=== PATIENT | female | born 2000 | race Caucasian/White ===

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

== ENCOUNTER 2021-02-03 12:47 | Outpatient (CLI) | payer BC, SELFPAY ==
--- NOTE | ~2021-02-03 | US_ITS ---
EXAMINATION: US OB <= 14 weeks fetus DATE: 02/03/2021 13:15 INDICATION: Encounter for supervision of normal . TECHNIQUE: Real-time transabdominal pelvic ultrasound was performed. COMPARISON: None. FINDINGS: The uterus measures 9.4 x 8.6 x 10.0 cm. There is an intrauterine gestational sac. The crown ru mp length measures 7.0. The biparietal diameter measures 2.5 cm. The femur length measures 1.1 cm. Th heriberto measurements correlate with an estimated gestational age of 13 weeks and 4 day(s) (+/-) 1 week(s) and 0 day(s). heart motion is identified measuring 153 beats per minute (bpm) by M-mode Dopple r. The ovaries are not visualized. There is no free fluid in the pelvis. IMPRESSION: 1. Single living intrauterine gestation with estimated date of delivery of 08/07/2021. Reviewed, dictated and finalized at location A. IMPRESSION: 1. Single living intrauterine gestation with estimated date of delivery of 07/14.
== END 2021-02-03 12:48 ==
LOC: MICIMG 12:49
PROVIDERS: PCP Physician Assistant; Visit Provider Physician Assistant
DX: Z34.91 Encounter for supervision of normal pregnancy, unspecified, first trimester (principal); Z3A.13 13 weeks gestation of pregnancy
CPT/HCPCS: 76801

== ENCOUNTER 2021-05-10 10:24 | Observation (INO) | payer BC, SELFPAY ==
--- NOTE | 2021-05-10 10:30 | OBADM ---
This patient, Дмитрий Torres, admitted to the OB room Labor/Delivery/Recovery 119 for observation. Patient/family oriented to hospital policies and general routines including ID bracelet, bed and alarms, visiting hours, pain management, procedures, bathroom and other care routines, personal items, smoking policy, room service/diet, and visiting hours. Patient/Family are encouraged to report perceived risks to care and to ask questions if they do not understand what they are told or what they should do.
[2021-05-10 10:45] VITALS: BP 104/56; PULSE 70
[2021-05-10 11:00] VITALS: BP 103/53; PULSE 77
[2021-05-10 11:18] VITALS: BMI 20.6
--- NOTE | 2021-05-11 16:25 | PM.OBTRLD ---
OB - Triage/Final Diagnosis Visit Information Reason for evaluation: threatened labor Comments/Additional reasons for admission: I have assessed the risk for this patient, Дмитрий Torres, and determined that she would benefit from observation care.
== END 2021-05-10 11:15 | disposition home or self-care (01) ==
LOC: ANHLDR 10:44
PROVIDERS: Admitting Provider Obstetrics & Gynecology; PCP Physician Assistant; Visit Provider Obstetrics & Gynecology
DX: O47.03 False labor before 37 completed weeks of gestation, third trimester (principal); Z3A.27 27 weeks gestation of pregnancy
CPT/HCPCS: G0378; G0379

== ENCOUNTER 2021-07-12 12:31 | Inpatient (IN) | payer BC, SELFPAY ==
--- NOTE | ~2021-07-12 | US_ITS ---
US OB BPP wo non-stress DATE: 07/13/2021 08:04 INDICATION: Decreased movement TECHNIQUE: Real-time imaging and Doppler evaluation COMPARISON: 07/12/2021 central ultrasound Limited examination with biophysical profile FINDINGS: Live [place]gan gestation, fetus in vertex presentation, longitudinal lie, heart rate of 125 bpm. Anterior placenta. Subjectively normal amount of amniotic fluid. BIOPHYSICAL PROFILE reported by tool repair technician: breathin out of 2 movement: 2 out of 2 tone: 2 out of 2 Amniotic fluid pocket: 2 out of 2 Total score: 8 out of 8 IMPRESSION: Normal biophysical profile score of 8 out of 8 Reviewed, dictated and finalized at Location A. Reviewed, dictated and finalized at location B. KBOOKS BOOKKEEPER
--- OUTSIDE RECORDS SUMMARY | 2021-07-12 18:04 | XMS_ITS ---
:2000 Author Care Team Providers Name Role Phone Paradise Ramirez Primary Care Provider Unavailable Allergies Code Code System Name Reaction Severity Status Onset NKDA ? Medications Name Status Start Date Stop Date ? ? amoxicillin 875 mg-potassium Completed ? 01/2019 clavulanate 125 mg tablet benzonatate 100 mg capsule Completed ? 03/19 cefprozil 500 mg tablet Completed ? 03/19/20 19 ciprofloxacin 250 mg tablet Completed ? 10/2019 ergocalciferol (vitamin D2) 1,250 mcg (50,000 unit) capsule Acti ve ? Not available TK 1 C PO Q WK fluticasone propionate 50 mcg/actuation Completed ? 03/19/2019 nasal spray,suspension nitrofurantoin Completed ? 03/19/2019 monohydrate/macrocrystals 100 mg capsule prednisone 20 mg tablet Completed ? 03/19/20 19 sertraline 25 mg tablet Completed ? 09/10/19 20 TK 1 T PO QD sertraline 50 mg tablet Active ? Not avai lable TK 1 T PO QD sulfamethoxazole 800 mg-trimethoprim Completed ? 01/23/2020 160 mg tablet triamcinolone acetonide 0.1 % topical cream Active ? Not available SY THIN LAYER EXT AA BID Problems Name Status Onset Date Source ? Generalized Anxiety Disorder Active 08/14/2019 ? Procedures Date Name Performed [facility] ? [facility]
--- NOTE | 2021-07-12 18:21 | PM.IMHP ---
H&P: HPI History of Present Illness Date/Time: 07/12/21 18:21 Дмитрий is a 21yo @ 36.2wks (BRITTNEY 08/07/21) who presented to her scheduled office visit. She endorsed decreased movement. She was sent to L&D for BPP/NST. BPP was 4/8 (off for movement/tone). NST was reassuring, but continued to note decreased movement. She has been having irregular contractions. No VB or LOF. After 4 hours of monitoring; she has continued to note decreased movement. Her is complicated by: - Late transfer of care from Dr. Faria at 27wks - IUGR; AC <10%ile - Varicella and rubella non-immune - Anxiety - Marijuana use - Mild anemia Chief Complaint: decreased movement Review of Systems Review of Systems: All systems reviewed & are unremarkable except as noted in HPI and below (HPI) PMFSH Past Medical History Medical History Anxiety History of seizure Small for gestational age fetus Surgical History Surgical History [place] teeth removed Family History Family History Father Diabetes mellitus Mother Hypertension Grandparent Congestive heart failure Social History Social History Smoking status: Current every day smoker Alcohol intake: never Substance use: current Substance use type: marijuana Last use: 07/11/21 Gender identity (if verbalized by the patient): Female Sexual Orientation (if Verbalized by the Patient): Straight or Heterosexual Spiritual care concerns: No Agree to blood products: No Meds Home Medications and Allergies Home Medications Medication Instructions Recorded Confirmed Type metoclopramide HCl 10 mg tablet 10 mg PO Q8H PRN tablet 06/25/21 07/12/21 History ondansetron HCl 4 mg tablet 4 mg PO Q6H #30 tablet 06/25/21 07/12/21 Rx vits no.126-ferrous fum tablet PO 06/25/21 07/12/21 History 28 mg iron-folic acid 800 mcg tablet Allergies Allergy/AdvReac Type Severity Reaction Status Date / Time No Known Allergies Allergy Mild Verified 06/25/21 08:17 Exam Const: General: cooperative, healthy appearing, comfortable and no acute distress Resp: Effort & Inspection: normal respiratory effort Cardio: Rate: regular rate GI: GI Palp: No abdominal tenderness and Yes Soft to palpation : Other: FHT's: 130's/ mod hipolito/ + accels/ no decels - cat 1 TOCO: irritability Presentation: cephalic Membranes: intact Skin: General skin exam: normal color Neuro: General: patient oriented x3 Extrem: General: normal to inspection Psych: Appearance: grossly normal Affect: normal affect Attitude: cooperative Assessment and Plan Assessment and plan (1) Decreased movement during : Qualifiers: Fetus number: single or unspecified fetus Trimester: third trimester Qualified Code(s): O36.8130 - Decreased movements, third trimester, not applicable or unspecified Code(s): O36.8190 - Decreased movements, unspecified trimester, not applicable or unspecified Status: Acute Additional Plan - BPP 09/17, NST /= 11/19 which is equivocal testing; and concerning in the setting of IUGR - Plan to admit overnight for prolonged monitoring as she continues to endorse decreased movement - Betamethasone 12mg IM q24h x 2 - Plan to repeat BPP in the AM; if still 09/17, would plan to proceed with induction of labor, or if non-reassuring FHT overnight, would be for pLTCS - GBS unknown; so if contractions noted or plan for IOL, will need ampicillin
--- NOTE | 2021-07-12 18:36 | WPDHPUPDATE1 ---
History and Physical Update Update Date/Time: 07/12/21 18:36 History and Physical has been reviewed, including an updated exam of the patient. There are NO changes in the patient's condition. Risks, benefits, and alternatives have been discussed and questions answered. Patient agrees to proceed with procedure.
--- NOTE | 2021-07-12 19:00 | LDADM ---
This patient, Дмитрий Torres, was admitted to OB Post 111 on 07/12/21 at 12:31. Plans for labor, pain management and were discussed with patient. Patient/family oriented to hospital policies and general routines including ID bracelet, bed and alarms, visiting hours, pain management, procedures, bathroom and other care routines, personal items, smoking policy, room service/diet and guest tray routines, infant security routines, and visiting hours. Patient/Family are encouraged to report perceived risks to care and to ask questions if they do not understand what they are told or what they should do. See OBIX for further documentation.
[2021-07-12 23:30] VITALS: TEMP 36.9
[2021-07-12 23:55] VITALS: BP 102/53; PULSE 75
[2021-07-13] MEDS: BETAMETHASONE SOD PHOS/ACETATE 30 MG/5 ML VIAL 12 MG IM (08:30)
--- NOTE | 2021-07-14 12:39 | PM.OBDSVD ---
DS: Admitting Diagnosis Discharge Date 07/13/21 Admitting Diagnosis decreased movement DS: Discharge Diagnosis Discharge Diagnosis (1) Decreased movement during : Qualifiers: Fetus number: single or unspecified fetus Trimester: third trimester Qualified Code(s): O36.8130 - Decreased movements, third trimester, not applicable or unspecified Code(s): O36.8190 - Decreased movements, unspecified trimester, not applicable or unspecified Status: Acute (2) Small for gestational age fetus: Status: Acute OB - DS: Summary OB Procedures : NST, Ultrasound and Other (prolonged heart rate monitoring) OB Procedures Intrapartum: Other (no delivery) OB Procedures: : Other (no delivery) Peripartum Data Procedures: Дмитрий is a 21yo who was admitted at 36+ weeks due to decreased movement. Initial BPP was 4/8 (off for movement, tone). NST was reactive. She was admitted for prolonged monitoring. She was given betamethasone 12mg IM x2. No contractions were noted so no GBS ppx was started. Fetus remained category 1 tracing overnight. Repeat BPP in the AM was 8. She was discharged home in stable condition with plans to return on 07/16/21 for repeat NST/BPP and given strict return precautions. Status at Discharge Functional status at discharge: independent ambulation Overall status at discharge: patient is back to baseline Time Spent with Patient Time attestation: Total time spent providing and/or coordinating discharge services: Time spent: Less than 30 minutes Exam Const: General: cooperative, healthy appearing, comfortable and no acute distress Resp: Effort & Inspection: normal respiratory effort Cardio: Rate: regular rate GI: GI Palp: No abdominal tenderness and Yes Soft to palpation : Other: category 1 tracing no contractions membranes intact; no bleeding cephalic presentation repeat BPP 01/17 Skin: General skin exam: normal color Neuro: General: patient oriented x3 Extrem: General: normal to inspection Psych: Appearance: grossly normal Affect: normal affect Attitude: cooperative Discharge Plan Discharge Discharging Clinician: Cara Balbuena Patient Disposition: Home, Self-Care Activity: as tolerated Diet: regular Discharge Instructions: OB ANTEPARTUM DISCHARGE INSTRUCTIONS This information is given to help you properly care for yourself at home after your discharge from the hospital. Follow these instructions until your doctor tells you otherwise. DIET: Eat Three Well Balanced Meals per Day Drink at Least Eight 8-Ounce Glasses of Caffeine-Free Beverages Daily Advance As Tolerated Additional Diet Instructions: ACTIVITY: As Tolerated Additional Activity Instructions: RETURN TO LABOR AND DELIVERY IF YOU HAVE: Any Change In Baby's Normal Movement Pattern Any Leakage of Fluid Contractions 3-5 Minutes Apart with Increasing Intensity Vaginal Bleeding Additional Reasons to Return to Labor and Delivery: Contractions may feel like abdominal pain, tightening, cramping, pressure, back ache, or thigh ache. 24 Hour Urine Collection: Continue 24 hour urine collection until at . When collection is completed, return specimen to the [facility]. See handout for 24 hour urine collection. OTHER INSTRUCTIONS: FOLLOW-UP CARE: Keep Next Scheduled Appointment To see come back for NST and BPP on Monday AM in/on Valuables released to patient or family? N/A Medications from home returned to patient? N/A I Acknowledge Receipt of and Understand the Above Instructions IF YOU HAVE ANY QUESTIONS REGARDING THESE INSTRUCTIONS, PLEASE CALL [phone]. IF PROBLEMS ARISE, CALL YOUR PROVIDER. IF EMERGENCY CARE IS NEEDED, [facility]S EMERGENCY ROOM IS AVAILABLE 24 HOURS A DAY. Stand Alone Forms: General Discharge Information Follow-up/Referrals: Cara Balbuena
== END 2021-07-13 08:45 | disposition home or self-care (01) | DRG 833 ==
LOC: ANHLDR 18:07 → ANHOBPP 07-13 03:07
PROVIDERS: Admitting Provider Obstetrics & Gynecology; PCP Physician Assistant; Visit Provider Obstetrics & Gynecology
DX: O36.8130 Decreased fetal movements, third trimester, not applicable or unspecified (principal); O36.5930 Maternal care for other known or suspected poor fetal growth, third trimester, not applicable or unspecified; O99.333 Smoking (tobacco) complicating pregnancy, third trimester; F17.210 Nicotine dependence, cigarettes, uncomplicated; Z3A.36 36 weeks gestation of pregnancy
CPT/HCPCS: 59025; 76815; 76819; 96372; J0702

== ENCOUNTER 2021-07-23 11:19 | Outpatient (RCR) | payer BC, SELFPAY ==
[2021-07-06 13:15] VITALS: BP 124/60; PULSE 73
[2021-07-10 12:46] VITALS: BP 112/67; PULSE 74
[2021-07-12 13:29] VITALS: BP 120/52; PULSE 89
[2021-07-12] MEDS: BETAMETHASONE SOD PHOS/ACETATE 30 MG/5 ML VIAL 12 MG IM (17:50)
--- NOTE | 2021-07-12 18:27 | PC.NURSE ---
1500- 125, reactive, no decels, irregular contractions 1600- 125, reactive, no decels, irregular contractions 1700- 125, reactive, no decels, irregular contractions 1800- 125, reactive, no decels, irregular contractions , patient transferred to inpatient
[2021-07-14 15:53] VITALS: BP 105/57; PULSE 62
[2021-07-16 12:34] VITALS: BP 112/58; PULSE 65
[2021-07-20 12:32] VITALS: BP 112/62; PULSE 77
--- NOTE | ~2021-07-23 | US_ITS ---
EXAMINATION: US OB BPP wo non-stress EXAM DATE: 07/14/2021 15:52 INDICATION: Decreased movement. 3rd trimester. TECHNIQUE: Pelvic obstetrical transabdominal sonogram was performed by a technologist. There are mu ltiple grayscale and Doppler images available for interpretation. Comparison is made to prior examina tion from 07/13/2021. FINDINGS: There is a single fetus identified in vertex presentation with a heart rate of 136 beats pe r minute. The placenta is located in the anterior position. There is no sonographic evidence of retr oplacental hemorrhage identified. There is subjectively expected amount of amniotic fluid. BIOPHYSICAL PROFILE (performed by the technologist) breathing (30 sec sustained breathing in 30 minutes): 2 out of 2 movement (3 gross body movements in 30 minutes): 2 out of 2 tone (one episode of ljcoyha-clazxxuyg-smisiyl limb movement): 2 out of 2 Amniotic fluid pocket (2 cm): 2 out of 2 Total score: 8 out of 8 IMPRESSION: 1. Single fetus with heart rate of 136 bpm. 2. Normal biophysical profile score of 8 out of 8. Reviewed, dictated and finalized at location G. OR CONTROL ASSISTANT
--- NOTE | ~2021-07-23 | US_ITS ---
EXAMINATION: US OB BPP wo non-stress DATE: 07/10/2021 12:41 INDICATION: Small for gestational age. Third trimester. TECHNIQUE: Real-time pelvic ultrasound was performed. COMPARISON: Ultrasound 07/06/2021 FINDINGS: There is a single living fetus in vertex presentation. The placenta is anterior. heart rate is 145 beats per minute (bpm). Biophysical profile performed by the technologist: breathing (30 sec sustained breathing in 30 minutes): 2 out of 2 movement (3 gross body movements in 30 minutes): 2 out of 2 tone (one episode of hvnqyby-ymldohndm-fkzwsnn limb movement): 2 out of 2 Amniotic fluid pocket (2 cm): 2 out of 2 Total score: 8 out of 8 IMPRESSION: 1. Single living fetus in vertex presentation. 2. Biophysical profile 8 out of 8. Reviewed, dictated and finalized at location A. OND EXPERT
--- NOTE | ~2021-07-23 | US_ITS ---
US OB BPP wo non-stress DATE: 07/23/2021 12:03 INDICATION: Intrauterine growth retardation TECHNIQUE: Real-time imaging and Doppler analysis COMPARISON: July 16, 2021 obstetrical ultrasound with biophysical profile FINDINGS: Fetus remains in vertex presentation, longitudinal lie with anterior placenta. heart rate of 148 bpm. BIOPHYSICAL PROFILE reported by injection mold tooling technician: breathin out of 2 movement: 2 out of 2 tone: 2 out of 2 Amniotic fluid pocket: 2 out of 2 Total score: 8 out of 8 IMPRESSION: Normal biophysical profile score of 8 out of 8 Reviewed, dictated and finalized at Location A. Reviewed, dictated and finalized at location A. STRY CONSULTANT
--- NOTE | ~2021-07-23 | US_ITS ---
EXAMINATION: US OB BPP wo non-stress DATE: 07/06/2021 13:14 MANAGER PHARMACY INDICATION: IUGR TECHNIQUE: Real-time transabdominal obstetric ultrasound. FINDINGS: No prior studies for comparison. There is a single living fetus in vertex presentation. The placenta is anterior without placenta pre via. cardiac activity and movement is noted with a heart rate of 144 beats per minute. Biophysical profile: breathin of 2 movement: 2 of 2 tone: 2 of 2 Amniotic flud pocket: 2 of 2 Total score: 8 of 8 IMPRESSION: 1. Single living intrauterine in vertex presentation. 2: Total biophysical profile score of 8/8. Reviewed, dictated and finalized at location B. GER PHARMACY
--- NOTE | ~2021-07-23 | US_ITS ---
EXAMINATION: US OB limited w BPP DATE: 07/12/2021 14:09 INDICATION: Diabetes during third trimester TECHNIQUE: Real-time pelvic ultrasound was performed. The interpreting radiologist was not present fo r the study. COMPARISON: 07/10/2021 FINDINGS: There is a single living fetus in vertex presentation. The placenta is anterior. heart rate is 141 beats per minute (bpm). The amniotic fluid index is 16.4 cm which is normal. Biophysical profile performed by the technologist: breathing (30 sec sustained breathing in 30 minutes): 2 out of 2 movement (3 gross body movements in 30 minutes): 0 out of 2 tone (one episode of tmheuep-rsdkhdqao-yrgoior limb movement): 0 out of 2 Amniotic fluid pocket (2 cm): 2 out of 2 Total score: 4 out of 8 IMPRESSION: 1. Single living fetus in vertex presentation. 2. Biophysical profile 4 out of 8. No points for movement or tone. 3. Normal amniotic fluid index. Reviewed, dictated and finalized at location B. OARD BUILDER
--- NOTE | ~2021-07-23 | US_ITS ---
EXAMINATION: US OB BPP wo non-stress DATE: 07/16/2021 12:50 INDICATION: Intrauterine growth restriction. TECHNIQUE: Real-time pelvic ultrasound was performed. COMPARISON: Ultrasound 07/14/2021 FINDINGS: There is a single living fetus in vertex presentation. The placenta is anterior. heart rate is 150 beats per minute (bpm). Biophysical profile performed by the technologist: breathing (30 sec sustained breathing in 30 minutes): 2 out of 2 movement (3 gross body movements in 30 minutes): 2 out of 2 tone (one episode of eaiqceb-rnbqilpwl-xfxulxo limb movement): 2 out of 2 Amniotic fluid pocket (2 cm): 2 out of 2 Total score: 8 out of 8 IMPRESSION: 1. Single living fetus in vertex presentation. 2. Biophysical profile 8 out of 8. Reviewed, dictated and finalized at location E. NSION ASSOCIATE
[2021-07-23 12:08] VITALS: BP 110/61; PULSE 79
== END 2021-10-04 23:59 | disposition home or self-care (01) ==
LOC: ANHOBOP 11:19
PROVIDERS: PCP Physician Assistant; Visit Provider Obstetrics & Gynecology
DX: O36.5930 Maternal care for other known or suspected poor fetal growth, third trimester, not applicable or unspecified (principal); Z3A.35 35 weeks gestation of pregnancy; O36.8130 Decreased fetal movements, third trimester, not applicable or unspecified; Z3A.36 36 weeks gestation of pregnancy; Z3A.37 37 weeks gestation of pregnancy
CPT/HCPCS: 59025; 76815; 76819; 96372; J0702

== ENCOUNTER 2021-07-25 17:07 | Inpatient (IN) | payer BC, MEDICAID, SELFPAY ==
[2021-07-25] VITALS (11 sets, daily range): BP systolic 103–121; BP diastolic 51–78; PULSE 57–85; TEMP 36.6; BMI 27.8
--- OUTSIDE RECORDS SUMMARY | 2021-07-25 17:12 | XMS_ITS ---
[...] Procedures Date Name Performed by ? [facility]
[2021-07-25 17:44] LABS: Basophils Percent Auto 0.2 % (0.2-1.2); Eosinophils Percent Auto 0.1 % (0-4.4); Hematocrit 31.5 % (37.0-47.0); Hemoglobin 10.4 g/dL (12.0-15.0); Immature Granulocyte Absolute 0.08 K/mm3 (0.00-0.031); Immature Granulocyte Percent A 0.6 % (0-0.5); Lymphocytes Absolute Auto 1.48 K/mm3 (0.9-3.2); Lymphocytes Percent Auto 11.9 % (18.3-44.2); Mean Corpuscular Hemoglobin 29.6 pg (26-34); Mean Corpuscular Volume 89.7 fl (80-100); Mean Platelet Volume 10.9 fl (7.4-10.4); Monocytes Absolute Auto 0.7 K/mm3 (0.1-0.6); Monocytes Percent Auto 5.7 % (2.6-8.5); Neutrophils Absolute Auto 10.2 K/mm3 (1.3-6.7); Neutrophils Percent Auto 81.5 % (45.5-73.1); Platelet Count Result 227 k/mm3 (150-375); Red Blood Count 3.51 M/mm3 (4.2-5.4); Red Cell Distribution Width 14.4 % (11.5-14.5); White Blood Count 12.5 K/mm3 (4.5-10.0)
[2021-07-25] MEDS: DINOPROSTONE 10 MG VAG INSERT VAGINAL (17:48)
[2021-07-25 18:33] LABS: HIV 1/2 Ab P24 Ag Result Negative (Negative)
[2021-07-25 18:44] LABS: Amphetamine Screen Urine Negative (Negative); Barbiturate Screen Urine Negative (Negative); Benzodiazepines Screen Urine Negative (Negative); Cannabinoid Screen Urine Positive (Negative); Cocaine Screen Urine Negative (Negative); Methadone Screen Urine Negative (Negative); Opiate Screen Urine Negative (Negative); Phencyclidine Screen Urine Negative (Negative)
[2021-07-26] VITALS (213 sets, daily range): BP systolic 86–130; BP diastolic 23–99; PULSE 52–143; RESP 16; TEMP 36.2–37.1; O2SAT 79–100
[2021-07-26] MEDS: LACTATED RINGERS 1,000 ML 125 ML IV CONT (06:27)
[2021-07-26] MEDS: OXYTOCIN 30 UNITS/NS 500 ML 30 UNITS/500 ML BAG 6 UNITS IV CONT (06:30)
--- NOTE | 2021-07-26 07:05 | PM.IMHP ---
H&P: HPI History of Present Illness Date/Time: 07/26/21 07:05 Дмитрий is a 21yo @ 38.2wks (BRITTNEY 08/07/21) who is admitted to L&D for IOL due to IUGR. She has had regular PNC; KEITH from Dr. Faria at 27wks. She was diagnosed w/ IUGR based on AC <2%ile. She had decreased FM @ 36wks w/ prolonged monitoring and ANCS x2. She had continued routine ANT. She reports good movement. No bleeding. Some contractions is and is now s/p Cervidil overnight. Her is complicated by: - Anxiety - Tobacco and marijuana use - IUGR w/ AC <2%ile, EFW 12%ile Chief Complaint: induction of labor Review of Systems Review of Systems: All systems reviewed & are unremarkable except as noted in HPI and below (HPI) [facility] [place] Past Medical History Medical History Anxiety History of seizure Small for gestational age fetus Surgical History Surgical History [place] teeth removed Family History Family History Father Diabetes mellitus Mother Hypertension Grandparent Congestive heart failure Social History Social History Smoking status: Current every day smoker Tobacco type: e-cigarettes/vaping Alcohol intake: never Substance use: current Substance use type: marijuana Last use: 07/11/21 Gender identity (if verbalized by the patient): Female Sexual Orientation (if Verbalized by the Patient): Straight or Heterosexual Spiritual care concerns: No Agree to blood products: No Meds Home Medications and Allergies Home Medications Medication Instructions Recorded Confirmed Type vits no.126-ferrous fum tablet PO 06/25/21 07/12/21 History 28 mg iron-folic acid 800 mcg tablet Allergies Allergy/AdvReac Type Severity Reaction Status Date / Time No Known Allergies Allergy Mild Verified 07/19/21 15:49 Vital Signs Vital Signs - 24 hr 07/25/21 17:38 07/25/21 17:48 07/25/21 18:01 Temperature 98 F Pulse Rate 85 78 Respiratory Rate Blood Pressure 103/64 121/66 07/25/21 18:16 07/25/21 18:31 07/25/21 18:46 Temperature Pulse Rate 84 81 81 Respiratory Rate Blood Pressure 117/63 121/75 118/61 07/25/21 19:01 07/25/21 19:16 07/25/21 19:32 Temperature Pulse Rate 77 68 80 Respiratory Rate Blood Pressure 111/51 L 115/65 109/78 07/25/21 19:47 07/25/21 23:59 07/26/21 00:00 Temperature 98.3 F Pulse Rate 78 57 L 63 Respiratory Rate 16 Blood Pressure 111/57 L 104/50 L 07/26/21 00:02 07/26/21 00:16 07/26/21 04:03 Temperature Pulse Rate 63 68 53 L Respiratory Rate Blood Pressure 108/59 L 109/62 96/52 L 07/26/21 04:16 07/26/21 04:31 07/26/21 06:01 Temperature Pulse Rate 60 62 70 Respiratory Rate Blood Pressure 108/68 110/66 111/66 07/26/21 06:16 07/26/21 06:31 07/26/21 06:46 Temperature Pulse Rate 62 63 63 Respiratory Rate Blood Pressure 112/62 110/64 107/70 07/26/21 07:01 Temperature Pulse Rate 66 Respiratory Rate Blood Pressure 113/72 Exam Const: General: cooperative, healthy appearing, comfortable and no acute distress Resp: Effort & Inspection: normal respiratory effort Cardio: Rate: regular rate GI: GI Palp: No abdominal tenderness and Yes Soft to palpation : Other: FHT's: 130's/ mod hip[place]ito/ + accels/ occasional mild variable - cat 2, reassuring TOCO: ctx's q 2-3min Cervix: 1.5/50/-3 Membranes: intact Presentation: cephalic Skin: General skin exam: normal color Neuro: General: patient oriented x3 Extrem: General: normal to inspection Psych: Appearance: grossly normal Affect: normal affect Attitude: cooperative H&P: Results Labs Labs: Short CBC 07/25/21 Range/Units 17:30 WBC 12.5 H (4.5-10.0) K/mm3 Hgb 10.4 L (12.0-15.0) g/dL Hct 31.5 L (37.0-47.0) %
[2021-07-26 07:21] LABS: Rapid Plasma Reagin Non-Reactive (NonReactive)
--- NOTE | 2021-07-26 07:26 | WPDHPUPDATE1 ---
History and Physical Update Update Date/Time: 07/26/21 07:26 History and Physical has been reviewed, including an updated exam of the patient. There are NO changes in the patient's condition. Risks, benefits, and alternatives have been discussed and questions answered. Patient agrees to proceed with procedure.
[2021-07-26] MEDS: ONDANSETRON INJ 4 MG/2 ML VIAL IV PUSH (08:25)
[2021-07-26] MEDS: fentaNYL CITRATE INJ (*CRX) 100 MCG/2 ML VIAL 50 MCG IV PUSH (08:28)
[2021-07-26] MEDS: LACTATED RINGERS 1,000 ML 999 ML IV CONT ×4 (11:22→19:20)
--- NOTE | 2021-07-26 12:24 | PM.OBPNLAB ---
Pain Control Date/time seen: 07/26/21 12:24 Pain control: epidural Pelvic Exam Dilation (cm): 5 Effacement (%): 70 station: -2 Amniotic membrane status: Ruptured (AROM, clear 1220) Contractions Monitor mode: Internal (placed on this exam) Contraction frequency: 2 (-3) Contraction pattern: Regular Status status: Category l Assessment and Plan Pitocin rate (mU/min): 12 Plan: continuous present management
[2021-07-26] MEDS: SODIUM CHLORIDE 0.9% IV 300 ML 600 ML I-UTERINE (14:13)
--- NOTE | 2021-07-26 14:15 | WPDANESEPP ---
Anes - Eval Pre Procedure Procedure: labor epidural Date/Time: 07/26/21 14:15 Surgeon: tonya Pre Op Diagnosis: IOL Patient Data Age: 21 Gender: F Height: 1.65 m Weight: 76 kg Last Vital Signs Temp 37.1 C 07/26/21 13:12 Pulse 88 07/26/21 14:02 Resp 16 07/26/21 00:00 BP 105/60 07/26/21 14:02 Pulse Ox 100 07/26/21 14:10 Allergies Allergy/AdvReac Type Severity Reaction Status Date / Time No Known Allergies Allergy Mild Verified 07/19/21 15:49 Home Medications Medication Instructions Recorded Confirmed Type vits no.126-ferrous fum tablet PO 06/25/21 07/12/21 History 28 mg iron-folic acid 800 mcg tablet Laboratory Tests 07/25/21 07/25/21 07/25/21 17:30 17:30 17:30 WBC 12.5 K/mm3 H K/mm3 (4.5-10.0) RBC 3.51 M/mm3 L M/mm3 (4.2-5.4) Hgb 10.4 g/dL L g/dL (12.0-15.0) Hct 31.5 % L % (37.0-47.0) MCV 89.7 fl fl (80-100) MCH 29.6 pg pg (26-34) MCHC 33.0 g/dl g/dl (32-36) RDW 14.4 % % (11.5-14.5) Plt Count 227 k/mm3 k/mm3 (150-375) MPV 10.9 fl H fl (7.4-10.4) Immature Gran % (Auto) 0.6 % H % (0-0.5) Neut % (Auto) 81.5 % H % (45.5-73.1) Lymph % (Auto) 11.9 % L % (18.3-44.2) [place] % (Auto) 5.7 % % (2.6-8.5) Eos % (Auto) 0.1 % % (0-4.4) Baso % (Auto) 0.2 % % (0.2-1.2) Lymph # (Auto) 1.48 K/mm3 K/mm3 (0.9-3.2) [place] # (Auto) 0.7 K/mm3 H K/mm3 (0.1-0.6) Eos # (Auto) 0.0 K/mm3 K/mm3 (0-0.3) Baso # (Auto) 0.0 K/mm3 K/mm3 (0.0-0.1) Abs Immat Gran (auto) 0.08 K/mm3 H K/mm3 (0.00-0.031) Absolute Neuts (auto) 10.2 K/mm3 H K/mm3 (1.3-6.7) Absolute Nucleated RBC 0.0 K/mm3 K/mm3 (0.0-0.012) Nucleated RBC % 0.0 % % (0.0-0.2) Urine Opiates Screen Urine Methadone Screen Ur Barbiturates Screen Ur Phencyclidine Scrn Ur Amphetamine Screen U Benzodiazepines Scrn Urine Cocaine Screen U Cannabinoids Screen RPR Non-reactive (NonReactive) HIV 1&2 Ab/P24 Ag 4thGn Negative (Negative) Blood Type Antibody Screen 07/25/21 07/25/21 17:30 17:30 WBC RBC Hgb Hct MCV MCH MCHC RDW Plt Count MPV Immature Gran % (Auto) Neut % (Auto) Lymph % (Auto) [place] % (Auto) Eos % (Auto) Baso % (Auto) Lymph # (Auto) [place] # (Auto) Eos # (Auto) Baso # (Auto) Abs Immat Gran (auto) Absolute Neuts (auto) Absolute Nucleated RBC Nucleated RBC % Urine Opiates Screen Negative (Negative) Urine Methadone Screen Negative (Negative) Ur Barbiturates Screen Negative (Negative) Ur Phencyclidine Scrn Negative (Negative) Ur Amphetamine Screen Negative (Negative) U Benzodiazepines Scrn Negative (Negative) Urine Cocaine Screen Negative (Negative) U Cannabinoids Screen Positive A (Negative) RPR HIV 1&2 Ab/P24 Ag 4thGn Blood Type A Positive Antibody Screen Negative Patient hx anesthesia problems: none Family hx anesthesia problems: none Results Review: All pre-operative results and documents have been reviewed as part of the pre-operative evaluation. [facility] Past Medical History Medical History Anxiety History of seizure Small for gestational age fetus Surgical History Surgical History [place] teeth removed Family History Family History (Reviewed 07/26/21 @ 07:0
--- NOTE | 2021-07-26 17:13 | P.PNOB_ITS ---
Pain Control Date/time seen: 07/26/21 17:13 Pain control: epidural Pelvic Exam Dilation (cm): 5 Effacement (%): 80 station: -2 Amniotic membrane status: Ruptured (AROM, clear 1220) Contractions Monitor mode: Internal Contraction frequency: 2 (-4) Contraction pattern: Regular Status status: Category ll Comments: recurrent variables Assessment and Plan Pitocin rate (mU/min): 4 Assessment: induction ongoing Plan: continuous present management Comments: - Amnioinfusion ongoing; baby prefers left lateral position - Pitocin had to be stopped; now FHT more reassuring and pitocin slowly being increased - Discussed continuing induction to increase contractions/cervical change, however, if heart rate tracing does not allow it and no continued change; may need to proceed with pLTCS. However, good variability and accelerations st ill noted and therefore reassuring and safe to proceed with induction
[2021-07-26] MEDS: SODIUM CHLORIDE 0.9% IV 1,000 ML 150 ML I-UTERINE (19:20)
--- NOTE | 2021-07-26 21:59 | P.PCNOB_ITS ---
OB - Delivery Note Procedure Delivery date: 07/26/21 Events: Intrauterine Growth Restriction (IUGR) Intrapartal Events: Decelerations Induction method: Per Cervidil Protocol and Other (thompson balloon) Delivery augmentation: Rupture of Membranes and Pitocin Delivery monitor: External FHT and Internal Uterine Route of delivery: Laceration Description: Labial (right) Delivery repair: vicryl Specimen: Yes (placenta) Quantitative Blood Loss (ml): 150 Anesthesia type: Epidural Disposition: floor [place] Baby Date of : 07/26/21 Time of : 21:43 Weeks of gestation at delivery: 38 (.2) Infant gender: Male Weight (pounds): 6 Weight (ounces): 9 presentation: vertex position: Right Occiput Anterior Placenta delivery description: Expressed Cord Vessel Description: 3 Vessels score one minute: 8 score five minutes: 9 Narrative: Дмитрий progressed to complete dilation and pushed for approximately 25 minutes with good maternal effort. She delivered the head over intact perineum and no nuchal cord was palpated. She easily delivered the 's shoulders and body without complication. The infant was immediately placed skin to skin and had spontaneous cry. Delayed cord clamping was performed. The umbilical cord was then clamped and cut. A segment of the cord was collected for cord gases. The remaining cord blood was collected for typing. With Pitocin running and gentle downward traction on the cord, the placenta delivered without complications. Bimanual massage revealed firm uterus with minimal bleeding. She was examined and a right labial laceration was noted. It was repaired using 3-0 Vicryl in the normal fashion. Good hemostasis and uterine tone were noted. Sponge, lap, instrument, and needle counts were correct at the end of procedure. Mom and baby bonding in the birthing suite in stable condition. [facility] Delivery Billing Delivery Delivery: Delivery Charge
[2021-07-26] MEDS: OXYTOCIN 30 UNITS/NS 500 ML 30 UNITS/500 ML BAG 125 UNITS IV CONT (22:43)
[2021-07-27 00:38] VITALS: BP 113/50; PULSE 83; RESP 18; TEMP 36.9
--- NOTE | 2021-07-27 00:38 | ADMGEN ---
This patient, Дмитрий Torres, was admitted to OB 2nd Floor Room 285-00. Patient/family oriented to hospital policies and general routines including ID bracelet, bed and alarms, visiting hours, pain management, procedures, bathroom and other care routines, personal items, smoking policy, room service/diet, and visiting hours. Information on how to activate the Rapid Response Team has been discussed. Patient/Family are encouraged to report perceived risks to care and to ask questions if they do not understand what they are told or what they should do.
[2021-07-27 04:23] VITALS: BP 101/68; PULSE 74; RESP 18; TEMP 37.1
[2021-07-27 05:29] LABS: Hematocrit 32.5 % (37.0-47.0); Hemoglobin 10.2 g/dL (12.0-15.0)
[2021-07-27 08:05] VITALS: BP 96/51; PULSE 63; RESP 18; TEMP 36.9; O2SAT 98
[2021-07-27] MEDS: DOCUSATE SODIUM 100 MG CAPSULE PO ×2 (09:12→19:16)
[2021-07-27] MEDS: WITCH HAZEL 40 PADS 1 PAD TOPICAL (09:12)
[2021-07-27] MEDS: BENZOCAINE 20% AER SPR (*SP) 56 GM CAN 1 SPRAY TOPICAL (09:12)
[2021-07-27] MEDS: MULTIVIT/MIN/PREN/FOL AC/IRON TABLET 1 TAB PO (09:12)
[2021-07-27] MEDS: TETANUS,DIPHTHERIA,AC PERTUSSIS ADULT (0.5 ML) BOOSTRIX IM (09:13)
--- NOTE | 2021-07-27 09:28 | WPDANLDPN2 ---
Anes-Prog Note L&D Date/Time: 07/27/21 09:28 Comfortable throughout: labor and delivery Neuraxial method: epidural Epidural/Spinal procedure site: clean & non-tender Neuro status: Neuro function grossly intact. Cardiovascular status: normal Respiratory status: normal Airway patency: baseline Mental status: baseline Post-Op hydration status: normal Vital Signs: Last Vital Signs Temp 36.9 C 07/27/21 08:05 Pulse 63 07/27/21 08:05 Resp 18 07/27/21 08:05 BP 96/51 L 07/27/21 08:05 Pulse Ox 98 07/27/21 08:05 Pain score (VAS): 0 I/O: Intake & Output 07/26/21 07/27/21 07/27/21 23:59 07:59 15:59 Intake Total 1000 500 Balance 1000 500 Post-procedural complaints: none Patient feedback: Patient satisfied with anesthetic care.
--- NOTE | 2021-07-27 10:37 | PC.NURSE ---
0930 - Introductions were made and mother led the discussion of her desires and plans to feeding her baby. Reviewed handwashing to prevent infection before and after taking care of her baby. Mother verbalizes she is able to independently latch . Discussed how to watch for early feeding cues, place infant skin to skin, then feeding baby when infant is ready or every 2-3 hours. Reviewed positioning/alignment with the use of the mom and baby guide. Encouraged mother with infant skin to skin. Attempted to the left breast in football and cross cradle position using nipple to nose and mother hand expressing colostrum into 's mouth with assistance. is sleepy and reluctant. Infant burped and appears to be attempting to spit something up and infant held by mother skin to skin vertically on her chest. She denies any nipple discomfort when she does latch . Reviewed there is to be no pain with , how to detach infant from the breast, visuals to watch for to confirm effective . Reviewed effective latching with resources using visual handout and milk production. Mother has verbalized understanding watching for feeding cues for responsive feeding or how to stimulate to initiate from the start of the last feeding. Visual handout given to mom teaching feeding cues. is not attempting to latch at this time. Mother voiced understanding to feed when she sees feeding cues, 8-12 times in 24 hours approximately every 2-3 hours from the start of the last feeding or she has discomfort with nursing. Mother will call for assistance when she sees feeding cues. Reported to primary RN. 0950 - Primary RN reported infant spit up clearing fluid. remains sleepy and reluctant at this time. Mother is working well with infant to stimulate for a feeding. Discussed intake, output, jaundice, weight and blood sugar goal. Mother is showing responsive efforts with skin to skin, touching and talking. 1030 - Mother is assertively stimulating infant and infant is not showing feeding signs. Mother has expressed colostrum into the 's mouth many times. Infant is either skin to skin or laying down between mothers legs being touched and talked to by mother. Mother voiced understanding to call for assistance when feeding cues are visualized. Reported to the primary nurse.
--- NOTE | 2021-07-27 11:04 | PC.NURSE ---
late entry 0845 - 's last feeding was 0530. Mother and everyone in the room is sleeping. RN unwrapped/undressed infant and encouraged mother to place infant skin to skin. Reviewed milk production and frequent feedings of 8-12 times in a 24 hours period. Infant is sleepy and mother works well with infant. Mother hand expressed colostrum into 's mouth with assistance. placed skin to skin and feeding cues reviewed with mother. Mother voiced understanding to call for assistance when she visualizes feeding cues. Discussed intake, output, jaundice, weight and blood sugar goals for baby. 0855 - Microfabrication Engineer Manager to assess.
[2021-07-27 12:21] VITALS: BP 109/67; PULSE 69; RESP 20; TEMP 36.9; O2SAT 100
--- NOTE | 2021-07-27 13:07 | PC.NURSE ---
1125 - Consulted with patient to assess infant feeding. Mom states latched at 1105 and had just recently stopped sucking. Mother is demonstrating optimal football positioning on the right breast and denies discomfort. Assessment of nipple after detaching shows no misshaped nipple. Instructed mother to call out for RN assistance if she is unable to latch infant for feeding or she has discomfort with nursing. Mother voiced understanding to initiated feeding when she visualizes feeding cues or three hours from start of last feeding, to call out for assistance if there's no latch or if there is discomfort with feeding. Reported to primary RN.
--- NOTE | 2021-07-27 15:18 | PCCCNOTE ---
Care Coordination met with pt. and baby this morning to discuss discharge planning. Pt.'s current D/C plan is to return home alone with baby. [place] owned by her father and is surrounded by family. Pt. states she has alot of support and everything needed to safely bring baby home. Pt. denies any concerns about bring baby home. She is current with WIC and will continue to breast feed baby. Pt. and baby both had positive urine drug screen for Marijuana. Pt. states she used Marijuana throughout the to she would gain weight. Pt. states understanding that a DCFS report will be made for drug use. Online report completed. Intake ID number [id number]. Will follow.
[2021-07-27 16:00] VITALS: BP 116/62; PULSE 88; RESP 16; TEMP 36.8; O2SAT 100
--- NOTE | 2021-07-27 17:17 | PM.OBPNVD ---
OB - PN: Subj Subjective Date/time seen: 07/27/21 17:17 Narrative: PPD#1 Дмитрий reports doing well today. Her bleeding is clinical safety specialist. Her pain is controlled. She is tolerating regular diet, voiding, passing gas, and ambulating without issues. She is breast feeding. She would like her son circumcised. OB - PN: Obj Data Labs CBC & Chem 7: 07/27/21 03:16 Labs: Laboratory Results - last 24 hr 07/27/21 03:16 Hgb 10.2 L Hct 32.5 L OB - PN A/P Assessment and Plan (1) Normal vaginal delivery of first : Code(s): O80 - Encounter for full-term uncomplicated delivery Status: Acute Plan day: 1 Plan: routine care and discharge home (tomorrow) Comments: - Pelvic rest; take meds as prescribed - ER return precautions: fever, n/v/abd pain, bleeding, HTN Time Spent With Patient Time: Total time spent is greater than 50% in coordination of care (as documented) at patient's floor/unit and/or counseling patient: Review of Systems Constitutional: Constitutional: Denies chills, Denies fever(s) and Denies headache(s) Eyes: Eyes: Denies change in vision ENT: Denies dizziness and Denies headache(s) Cardiovascular: Cardiovascular: Denies chest pain, Denies palpitations and Denies dyspnea Respiratory: Respiratory: Denies cough and Denies dyspnea Gastrointestinal: Gastrointestinal: Denies nausea and Denies vomiting Neurologic: Denies dizziness and Denies headache(s) Endocrine: Endocrine: Denies palpitations Exam Const: General: cooperative, comfortable and no acute distress Orientation/consciousness: patient oriented x3 Resp: Effort & Inspection: normal respiratory effort Auscultation: clear to auscultation bilaterally Cardio: Rate: regular rate GI: Inspection: non-distended GI Palp: No abdominal tenderness and Yes Soft to palpation Auscultation: normal bowel sounds : Other: fundus firm Skin: General skin exam: normal color Neuro: General: patient oriented x3 Extrem: General: normal to inspection Psych: Appearance: grossly normal Affect: normal affect Attitude: cooperative
[2021-07-27 19:15] VITALS: BP 116/64; PULSE 88; RESP 16; TEMP 37.2
[2021-07-28 06:50] VITALS: BP 105/50; PULSE 68; RESP 18; TEMP 36.2; O2SAT 100
[2021-07-28] MEDS: IBUPROFEN 600 MG TABLET PO (09:24)
[2021-07-28] MEDS: MULTIVIT/MIN/PREN/FOL AC/IRON TABLET 1 TAB PO (09:24)
[2021-07-28] MEDS: DOCUSATE SODIUM 100 MG CAPSULE PO (09:26)
[2021-07-28 09:30] VITALS: PULSE 68; RESP 18; O2SAT 100
--- NOTE | 2021-07-28 09:30 | PC.NURSE ---
PT introductions made and plan of care discussed per post , pain management, breast feeding, daily care activities and pending discharge to home. PT received instructions per one to one discussion, mom baby care guide and demonstrations this shift. PT and significant other both recipients or such instructions this shift. No barriers to learning identified and pt verbalized understanding of such care.
[2021-07-28] MEDS: MEASLES,MUMPS,RUBELLA VACCINE 0.5 ML VIAL SUB-Q (10:58)
--- NOTE | 2021-07-28 11:30 | PC.NURSE ---
Patient was given the opportunity to view the discharge video Mother & Baby Care, The First Two Weeks and to ask questions. Patient declined viewing the video and has been given the mother/baby guide for home reference. Discharge instructions provided via protocol and parents verbalized understanding.
--- NOTE | 2021-07-28 12:00 | PC.NURSE ---
PT discharged to home ambulatory accompanied by significant other and and taken to waiting car. follow up appts confirmed
--- NOTE | 2021-07-28 12:35 | PC.NURSE ---
0820 - Consulted with patient to assess how feedings are going so far. Mother is awake and resting with in bed all swaddled in fuffy, warm blankets. Reviewed feeding cues, frequencies or 8-12 times in 24 hours, duration of feedings, feeding elimination flow sheet, and signs of adequate intake. Encouraged mom to place skin to skin and watch for feeding cues. Mother voiced calling when she sees feeding cues Mother demonstrated stimulation techniques to wake infant for feeding and remains sleepy at this time. Reviewed positioning/alignment, holding breast, asymmetrical latch on and nipple care. Instructed mother to call out for RN assistance if she is unable to latch infant for feeding or she has discomfort with nursing. Mother verbalized understanding for feeding to be initiated three hours from start of last feeding or if feeding cues are noted before. Reported to primary RN. [id number] Reminded parents to use good handwashing to prevent infection. has had adequate feedings in the past 24 hours with encouragement to aim closer to 8-12 feedings in 24 hours. meets the outcomes for weight, output and jaundice at this time. Mother states she feels confident to continue effectively her at home. Reviewed production of human milk, transition of milk, signs of adequate intake and engorgement prevention/relief and when to call the infant care provider using the mom and baby guide. Reviewed medications mother is taking with information provided by [facility], community resources and outpatient services as listed in the mom and baby guide/[facility] website. Reinforced watching for feeding cues with responsive feeding and how to stimulate to initiate feeding three hours from the start of the last feeding. Mother voiced understanding of information shared. Reported to primary RN. 0928 - Mother reports she breastfed without discomfort, good rocking motion, big open mouth and suck/swallowing as we discussed in previous consultation.
[2021-07-29 09:37] VITALS: BP 119/74; PULSE 78; RESP 20; TEMP 37.1; O2SAT 100
--- NOTE | 2021-07-29 14:16 | PM.OBDSVD ---
DS: Admitting Diagnosis Discharge Date 07/28/21 Admitting Diagnosis Induction of labor IUGR DS: Discharge Diagnosis Discharge Diagnosis (1) Normal vaginal delivery of first : Code(s): O80 - Encounter for full-term uncomplicated delivery Status: Acute (2) IUGR (intrauterine growth restriction): Status: Acute OB - DS: Summary OB Procedures : NST and Ultrasound OB Procedures Intrapartum: Spontaneous Vag Delivery OB Procedures: : None Peripartum Data Delivery Method: Natural Vaginal Laceration Description: Labial complications: none 1: Gender: Male Disposition of : home Status at Discharge Functional status at discharge: independent ambulation Overall status at discharge: patient is back to baseline Time Spent with Patient Time attestation: Total time spent providing and/or coordinating discharge services: Time spent: Less than 30 minutes Exam Const: General: cooperative, comfortable and no acute distress Orientation/consciousness: patient oriented x3 Resp: Effort & Inspection: normal respiratory effort Auscultation: clear to auscultation bilaterally Cardio: Rate: regular rate GI: Inspection: non-distended GI Palp: No abdominal tenderness and Yes Soft to palpation Auscultation: normal bowel sounds : Other: fundus firm Skin: General skin exam: normal color Neuro: General: patient oriented x3 Extrem: General: normal to inspection Psych: Appearance: grossly normal Affect: normal affect Attitude: cooperative DS: Data Data Completed and Pending Pending studies at discharge: Pending at discharge 07/26/21 22:37 Surgical [PTH] Routine Discharge Plan Discharge Attending physician on discharge: Cara Balbuena Discharging Clinician: Cara Balbuena Anticipated Discharge Date/Time: 07/28/21 08:00 Patient Disposition: Home, Self-Care Activity: may shower, may drive after 2 weeks and pelvic rest Diet: regular Discharge Instructions: Education: Mom and Baby Guide Given to: Mother Follow-Up: Call your delivering provider's office for an appointment to be seen in: 4 weeks Mom and baby should come to the [facility] for the follow-up appointment. Appointment Date/Time: July 29, 2021 at 9:00 am What to expect at your follow-up visit: Blood Pressure Check Call [phone] if you are unable to keep your appointment time. BREAST CARE: * Wear a snug supportive bra. * For engorgement discomfort: Breast Feeding: * Apply warm moist washcloths * Express milk as needed to relieve engorgement * Wear loose clothing Bottle Feeding: * May apply ice packs * For sore nipples: * Identify correct latch-on * Apply warm moist washcloths before and after nursing * Air dry nipples after nursing * May apply Lansinoh cream to nipples PERINEAL CARE: * Until bleeding stops, use your florencia bottle after urinating * Change your pad frequently throughout the day * You may take sitz baths several times a day (fill your bathtub with warm water and soak for 20 minutes.) Do NOT bathe in the water * No tub baths until seen by your physician - You may shower ACTIVITY: * Rest as much as possible. * Do not exercise or lift anything heavier than your baby (such as laundry or other children.) * Avoid stairs or driving as much as possible. * Do not put anything into the vagina. No douching, tampons, or sexual activity until seen by physician. NOTIFY PHYSICIAN IF YOU HAVE ANY QUESTIONS OR IF ANY OF THE FOLLOWING SYMPTOMS OCCUR: * If your perineum becomes red, swollen, or more painful than what you have experienced in the hospital. * If your vaginal bleeding becomes foul smelling. * If your vaginal bleeding becomes more heavy than a period or if your bleeding changes from pink to bright red. How
== END 2021-07-28 12:00 | disposition home or self-care (01) | DRG 806 ==
LOC: ANHLDR 17:11 → ANHOB2 07-27 01:10
PROVIDERS: Admitting Provider Obstetrics & Gynecology; PCP Physician Assistant; Visit Provider Obstetrics & Gynecology
DX: O36.5930 Maternal care for other known or suspected poor fetal growth, third trimester, not applicable or unspecified (principal); O99.324 Drug use complicating childbirth; Z37.0 Single live birth; Z3A.38 38 weeks gestation of pregnancy; F12.90 Cannabis use, unspecified, uncomplicated; O36.8330 Maternal care for abnormalities of the fetal heart rate or rhythm, third trimester, not applicable or unspecified; O99.344 Other mental disorders complicating childbirth; F41.9 Anxiety disorder, unspecified; O99.334 Smoking (tobacco) complicating childbirth; F17.210 Nicotine dependence, cigarettes, uncomplicated; O70.0 First degree perineal laceration during delivery
CPT/HCPCS: 36415; 59025; 76819; 80307; 85014; 85018; 85025; 86592; 86703; 86850; 86900; 86901; 88305; 88307; 90710; 90715; A9270; G0432; J2405; J2590; J2795; J3010; J7030; J7120

== ENCOUNTER 2022-03-01 13:54 | Emergency (ER) | payer BC, MEDICAID, SELFPAY ==
--- NOTE | ~2022-03-01 | CT_ITS ---
EXAMINATION: CT abdomen pelvis w con DATE: 03/01/2022 17:32 INDICATION: Right upper quadrant abdominal pain TECHNIQUE: Computed tomography (CT) of the abdomen and pelvis was performed with 100 CC Omnipaque 350 intravenous contrast. Automated exposure control and iterative reconstruction technique were employe d. Exam dose: 323.37 mGy-cm total exam DLP. COMPARISON: None. FINDINGS: There is patchy infiltrate involving the lung bases including medial segment middle lobe, l ingula and both lower lobes, suggesting bilateral pneumonia. Consider Covid 19. Normal heart size. No pericardial or pleural effusion. Liver, gallbladder, bile ducts, pancreas and pancreatic duct and spleen are unremarkable. Normal morphology of the adrenal glands. No renal mass lesion or urinary tract calculus or hydroureteronephrosis. The urinary bladder is relatively evacuated but otherwise unremarkable. IUD is identified within the uterus. Adnexal areas are unremarkable. Normal caliber of the abdominal aorta. No intraperitoneal or retroperitoneal or pelvic mass lesion or adenopathy or ascites. Normal appendix is visualized. No bowel obstruction, bowel wall thickening, pneumatosis or intraperit beasley free air is detected. Included skeletal structures are unremarkable. IMPRESSION: Patchy bilateral pneumonia; some infiltrate abuts the diaphragm, particularly at the med ial segment of the middle lobe and the posterior aspect of the diaphragm. This might cause right uppe r quadrant abdominal pain IUD within uterus Normal appendix Reviewed, dictated and finalized at [facility]. Reviewed, dictated and finalized at location [facility]. IMPRESSION: Patchy bilateral pneumonia; some infiltrate abuts the diaphragm, p articularly at the medial segment of the middle lobe and the posterior aspect o f the diaphragm. This might cause right upper quadrant abdominal pain IUD within uterus Normal appendix
--- NOTE | ~2022-03-01 | XR_ITS ---
EXAM: [id number] DATE: 03/01/2022 14:10 HISTORY: pain with inspiration, coughing . COMPARISON: None available. FINDINGS: Normal mineralization. No fracture or dislocation. No lytic or blastic lesion. Joint space s are maintained. No erosion or periosteal change. Soft tissues within normal limits. Subsegmental bi basilar opacities. Normal cardiomediastinal silhouette. IMPRESSION: Bibasilar pulmonary opacities may reflect atelectasis or infection. No acute osseous find ing in the right ribs. Reviewed, dictated and finalized at location [facility]. IMPRESSION: Bibasilar pulmonary opacities may reflect atelectasis or infection. No acute osseous finding in the right ribs.
[2022-03-01 14:11] VITALS: BP 115/73; PULSE 90; RESP 16; TEMP 36.2; O2SAT 98
[2022-03-01] MEDS: SODIUM CHLORIDE 0.9% IV 1,000 ML 999 ML IV CONT (15:50)
[2022-03-01] MEDS: KETOROLAC 30 MG/ML VIAL (*BKC) IV PUSH (15:51)
[2022-03-01 16:00] LABS: Basophils Percent Auto 0.3 % (0.2-1.2); Eosinophils Absolute Auto 0.1 K/mm3 (0-0.3); Eosinophils Percent Auto 1.6 % (0-4.4); Hematocrit 41.3 % (37.0-47.0); Hemoglobin 13.2 g/dL (12.0-15.0); Immature Granulocyte Absolute 0.07 K/mm3 (0.00-0.031); Lymphocytes Absolute Auto 1.77 K/mm3 (0.9-3.2); Lymphocytes Percent Auto 25.6 % (18.3-44.2); Mean Corpuscular Hemoglobin 29.3 pg (26-34); Mean Corpuscular Volume 91.8 fl (80-100); Mean Platelet Volume 10.2 fl (7.4-10.4); Monocytes Absolute Auto 0.4 K/mm3 (0.1-0.6); Monocytes Percent Auto 6.2 % (2.6-8.5); Neutrophils Absolute Auto 4.5 K/mm3 (1.3-6.7); Neutrophils Percent Auto 65.3 % (45.5-73.1); Platelet Count Result 415 k/mm3 (150-375); Red Cell Distribution Width 13.9 % (11.5-14.5); White Blood Count 6.9 K/mm3 (4.5-10.0)
[2022-03-01 16:08] LABS: Alanine Aminotransferase 16 U/L (6-35); Albumin Level 4.2 g/dL (3.5-5.1); Alkaline Phosphatase 65 U/L (38-126); Anion Gap 11 mmol/L (8-16); Aspartate Amino Transferase 18 U/L (14-36); Bilirubin,Total 0.3 mg/dL (0.2-1.3); Blood Urea Nitrogen 6 mg/dL (7-17); Calcium 9.3 mg/dL (8.4-10.2); Carbon Dioxide 27 mmol/L (22-30); Chloride 103 mmol/L (98-107); Estimated CRCL calculation 88 ml/min; Estimated Glomerular Filt Rate > 60; Glucose 95 mg/dL (65-110); Lipase 40 U/L (23-300); Sodium 141 mmol/L (137-145)
--- NOTE | 2022-03-01 19:41 | ED.GENADULT ---
HPI - General Adult General Chief complaint: Upper Respiratory Infection Stated complaint: rib pain Time Seen by Provider: 03/01/22 14:45 History of Present Illness HPI narrative: Patient is a 21-year-old female who presents to the ER with right-sided rib pain. Pain is worse with deep breath. No hemoptysis. Denies fevers or chills but reports she has had persistent cough for the last few weeks. She has had multiple negative COVID test. She was prescribed azithromycin. No known sick contacts. No exertional chest pain. Patient's pain increasing over the last couple days so encouraged by friend to be evaluated. She is on control. No lower extremity swelling. Related Data Allergies Allergy/AdvReac Type Severity Reaction Status Date / Time No Known Allergies Allergy Mild Verified 03/01/22 15:19 Review of Systems Review of Systems: All systems reviewed & are unremarkable except as noted in HPI and below Constitutional: Constitutional: Denies chills, Reports fatigue and Denies fever(s) ENT: Reports nasal congestion and Reports sore throat Cardiovascular: Cardiovascular: Denies chest pain, Denies rapid heart rate and Denies radiating jaw, neck or arm pain Respiratory: Respiratory: Reports cough, Denies dyspnea and Denies wheezing Gastrointestinal: Gastrointestinal: Denies abdominal pain, Denies nausea and Denies vomiting PMFSH Past Medical History Medical History Anxiety History of seizure Small for gestational age fetus Surgical History Surgical History H/O gynecological procedure mirena insertion 09/22/2021 [place] teeth removed Family History Family History Father Diabetes mellitus Mother Hypertension Grandparent Congestive heart failure Social History Social History Smoking status: Current every day smoker Tobacco type: e-cigarettes/vaping Alcohol intake: never Substance use: current Substance use type: marijuana Last use: 07/11/21 Gender identity (if verbalized by the patient): Female Sexual Orientation (if Verbalized by the Patient): Straight or Heterosexual Spiritual care concerns: No Agree to blood products: No Exam Narrative: GENERAL: Well-appearing, well-nourished, and in no acute distress. HEAD: Normocephalic, atraumatic. CHEST: Clear to auscultation. No respiratory distress. HEART: Regular rate and rhythm. Normal peripheral pulses. ABDOMEN: Soft, right upper quadrant tenderness with guarding, nondistended, normal active bowel sounds. EXTREMITIES: Normal range of motion. No edema. SKIN: Warm, dry, no rash. NEURO: Alert and oriented x3. PSYCH: Normal mood and affect. Course Course Emergency Course: Discussed results and treatment plan. Patient verbalized understanding. Will start on doxycycline. Vital Signs Vital signs: Vital Signs Temperature 97.1 F L 03/01/22 14:11 Pulse Rate 90 03/01/22 14:11 Respiratory Rate 16 03/01/22 14:11 Blood Pressure 115/73 03/01/22 14:11 Pulse Oximetry 98 03/01/22 14:11 Oxygen Delivery Room Air 03/01/22 14:11 Temperature 97.1 F L 03/01/22 14:11 Pulse Rate 90 03/01/22 14:11 Respiratory Rate 16 03/01/22 14:11 Blood Pressure 115/73 03/01/22 14:11 Pulse Oximetry 98 03/01/22 14:11 Oxygen Delivery Room Air 03/01/22 15:19 Medical Decision Making Vital Signs Vital Signs: Vital Signs Temperature 97.1 F L 03/01/22 14:11 Pulse Rate 90 03/01/22 14:11 Respiratory Rate 16 03/01/22 14:11 Blood Pressure 115/73 03/01/22 14:11 Pulse Oximetry 98 03/01/22 14:11 Oxygen Delivery Room Air 03/01/22 14:11 Temperature 97.1 F L 03/01/22 14:11 Pulse Rate 90 03/01/22 14:11 Respiratory Rate 16 03/01/22 14:11 Blood Pressure 115/73 03/01/22 14:11 Pulse Oximetr
== END 2022-03-01 19:53 | disposition home or self-care (01) ==
PROVIDERS: Emergency Provider Emergency Medicine; PCP Physician Assistant
DX: J18.9 Pneumonia, unspecified organism (principal); R09.1 Pleurisy; F17.290 Nicotine dependence, other tobacco product, uncomplicated
CPT/HCPCS: 36415; 71101; 74177; 80053; 81025; 83690; 85025; 96361; 96374; 99284; J1885; J7030; Q9967

== ENCOUNTER 2023-12-09 23:01 | Emergency (ER) | payer BC, MEDICAID, SELFPAY ==
--- NOTE | ~2023-12-09 | US_ITS ---
EXAMINATION: US pelvic complete DATE: 12/10/2023 00:26 INDICATION: Left lower quadrant pelvic pain TECHNIQUE: Multiple transabdominal sonographic images of the pelvis were obtained. COMPARISON: CT dated 12/10/2023 FINDINGS: The uterus measures 7.8 x 2.5 x 5.9 cm. Linear echogenic margin of the and shadowing IUD within the e ndometrial canal. The presence of the IUD along with transabdominal imaging limits visualization of t he endometrial complex which does not appear thickened. The right ovary measures 3.7 x 2.8 x 2.4 cm. The left ovary measures 2.9 x 2.5 x 3.1 cm. Anechoic follicles at both ovaries the larger dominant fo llicle on the left measuring 3.0 x 1.7 x 1.5 cm. Facet flow with arterial waveforms identified at bot h ovaries on color Doppler. There is no free fluid in the pelvis. IMPRESSION: 1. IUD in expected position. Otherwise normal pelvic ultrasound. Reviewed, dictated and finalized at location [facility].
--- NOTE | ~2023-12-09 | CT_ITS ---
EXAMINATION: CT abdomen pelvis wo con DATE: 12/10/2023 00:35 INDICATION: Lower abdominal pain and right flank pain. Pelvic pain with burning with urination. TECHNIQUE: Computed tomography (CT) of the abdomen and pelvis was performed without intravenous contr ast. Automated exposure control and iterative reconstruction technique were employed. The dose-length product was 234.92 mGy-cm. COMPARISON: None FINDINGS: Lung bases are clear. Heart size is normal. No pericardial or pleural effusion. Liver, gallbladder, s pleen, pancreas, bilateral adrenal glands and kidneys are normal. No evident urolithiasis. Bladder is normal. T-shaped IUD in expected position within the anteverted uterus. Bilateral adnexa are unremar kable. Bowels including the appendix are normal. No free intraperitoneal gas or fluid. No pathologica lly enlarged abdominal or pelvic lymphadenopathy. Multilevel mild lumbar facet osteoarthritis. IMPRESSION: 1. No acute intra-abdominal/pelvic process. 2. IUD in expected position. Reviewed, dictated and finalized at location A.
[2023-12-09 23:08] VITALS: BP 142/74; PULSE 143; RESP 20; TEMP 36.5; O2SAT 98
[2023-12-09] MEDS: ACETAMINOPHEN 500 MG TABLET 1000 MG PO (23:42)
[2023-12-09 23:45] LABS: Appearance Urine Turbid (Clear); Bacteria Urine None Seen /hpf; Bilirubin Urine Negative (Negative); Blood Urine 3+ (Negative); Color Urine Dark Yellow (Yellow); Glucose Urine UA Negative (Negative); Ketones Urine Negative (Negative); Leukocyte Esterase Ur 3+ LEU/UL (Negative); Mucus Urine Present /lpf; Need Manual Microscopic Reviewed; Nitrate Urine Positive (Negative); Non Pathogenic Casts 0-2; Protein Urine 2+ mg/dL (Negative); Specific Grav Ur 1.006 (1.001-1.035); Squamous Epithelial Cell Urine Occasional /hpf (Few); WBC Urine >100 /hpf (0-3)
--- NOTE | 2023-12-09 23:45 | ED.FEMALEGU ---
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 <RAND Holder Last Filed: 12/10/23 02:15> Time Seen by Provider: 12/09/23 23:03 <RAND Holder Last Filed: 12/10/23 02:15> Source: patient <RAND Holder Last Filed: 12/10/23 02:15> Mode of arrival: ambulatory <RAND Holder Last Filed: 12/10/23 02:15> Limitations: no limitations <RAND Holder Last Filed: 12/10/23 02:15> History of Present Illness HPI Narrative: Patient is a 23-year-old female who presents the ED with report of lower abdominal pain. Patient reports having pain throughout her pelvic region, worse throughout her left lower abdomen and radiating to left lower back for the past 5 days. Worsening over the last 3 days. She thought she may have a UTI. Reports dysuria, painful urination. She has been taking azo [id number], but denies improvement. Denies hematuria. Today, she reports that she was straining to have a bowel movement and felt as though her IUD became dislodged. She is still able to feel the strings, but states they feel further down than usual. She does note your last bowel movement was around 1.5 weeks ago. She has history of frequent constipation since having her child 2 years ago. Denies vaginal bleeding. Denies nausea, vomiting, fevers. <RAND Holder Last Filed: 12/10/23 02:15> Related Data Allergies/Adverse reactions: Allergies Allergy/AdvReac Type Severity Reaction Status Date / Time No Known Allergies Allergy Mild Verified 12/09/23 23:11 <RAND Holder Last Filed: 12/10/23 02:15> Review of Systems Review of Systems: CONSTITUTIONAL: Denies fever, chills, or sweats. CARDIOVASCULAR: Denies chest pain. RESPIRATORY: Denies dyspnea. GASTROINTESTINAL: See HPI. GENITOURINARY: See HPI. MUSCULOSKELETAL: See HPI. <Minda Jimenez PA-C - Last Filed: 12/10/23 02:15> All systems reviewed & are unremarkable except as noted in HPI and below <Minda Jimenez PA-C - Last Filed: 12/10/23 02:15> PMFSH Past Medical History Medical History: Medical History Anxiety History of seizure Small for gestational age fetus <Minda Jimenez PA-C - Last Filed: 12/10/23 02:15> Surgical History Surgical History: Surgical History H/O gynecological procedure mirena insertion 09/22/2021 [place] teeth removed <Minda Jimenez PA-C - Last Filed: 12/10/23 02:15> Family History Family History: Family History Father Diabetes mellitus Mother Hypertension Grandparent Congestive heart failure <Minda Jimenez PA-C - Last Filed: 12/10/23 02:15> Social History Social History: Social History Smoking status: Current every day smoker Tobacco type: e-cigarettes/vaping Alcohol intake: never Substance use: current Substance use type: marijuana Last use: 07/11/21 Occupation/Education: unemployed Gender identity (if verbalized by the patient): Female Sexual Orientation (if Verbalized by the Patient): Straight or Heterosexual Spiritual care concerns: No Agree to blood products: No <Minda Jimenez PA-C - Last Filed: 12/10/23 02:15> Exam Narrative: GENERAL: Well appearing, well-nourished, non-toxic, in no acute distress. HEAD: Normocephalic, atraumatic. RESPIRATORY: Airway patent, respirations nonlabored. Clear to auscultation bilaterally, no rales, rhonchi, wheezing. CARDIOVASCULAR: tachycardic with regular rhythm without murmurs, rubs, or gallops. ABDOMINAL: Soft, Di
[2023-12-09 23:46] LABS: Add Urine Microscopic? YES
[2023-12-10 00:20] LABS: Pregnancy On Board Control Positive; Urine Pregnancy Test Negative
[2023-12-10] MEDS: SODIUM CHLORIDE 0.9% IV 1,000 ML 999 ML IV CONT (00:21)
[2023-12-10 00:24] LABS: Basophils Percent Auto 0.3 % (0.2-1.2); Eosinophils Percent Auto 0.3 % (0-4.4); Hematocrit 39.3 % (37.0-47.0); Hemoglobin 13.3 g/dL (12.0-15.0); Immature Granulocyte Absolute 0.03 K/mm3 (0.00-0.031); Immature Granulocyte Percent A 0.3 % (0-0.5); Lymphocytes Absolute Auto 1.47 K/mm3 (0.9-3.2); Lymphocytes Percent Auto 14.9 % (18.3-44.2); Mean Corpuscular HGB Conc 33.8 g/dl (32-36); Mean Corpuscular Hemoglobin 32.1 pg (26-34); Mean Corpuscular Volume 94.9 fl (80-100); Mean Platelet Volume 10.5 fl (7.4-10.4); Monocytes Absolute Auto 0.7 K/mm3 (0.1-0.6); Monocytes Percent Auto 7.1 % (2.6-8.5); Neutrophils Absolute Auto 7.6 K/mm3 (1.3-6.7); Neutrophils Percent Auto 77.1 % (45.5-73.1); Platelet Count Result 287 k/mm3 (150-375); Red Blood Count 4.14 M/mm3 (4.2-5.4); Red Cell Distribution Width 12.3 % (11.5-14.5); White Blood Count 9.9 K/mm3 (4.5-10.0)
[2023-12-10 01:17] LABS: Alanine Aminotransferase 14 U/L (6-35); Albumin Level 4.5 g/dL (3.5-5.1); Alkaline Phosphatase 49 U/L (38-126); Anion Gap 9 mmol/L (4-12); Aspartate Amino Transferase 23 U/L (14-36); Bilirubin,Total 0.5 mg/dL (0.2-1.3); Blood Urea Nitrogen 6 mg/dL (7-17); Calcium 9.5 mg/dL (8.4-10.2); Carbon Dioxide 25 mmol/L (22-30); Chloride 106 mmol/L (98-107); Estimated CRCL calculation 112 ml/min; Estimated Glomerular Filt Rate > 60; Glucose 102 mg/dL (65-110); Potassium 3.9 mmol/L (3.4-5.0); Sodium 140 mmol/L (137-145)
[2023-12-10 01:27] VITALS: BP 134/87; PULSE 101; RESP 18; O2SAT 100
[2023-12-10 05:28] VITALS: BP 134/89; PULSE 99; RESP 18; O2SAT 100
== END 2023-12-10 05:59 | disposition home or self-care (01) ==
PROVIDERS: Physician Assistant; Emergency Provider Emergency Medicine; PCP Physician Assistant
DX: N30.01 Acute cystitis with hematuria (principal); F41.9 Anxiety disorder, unspecified
CPT/HCPCS: 36415; 74176; 76856; 80053; 81001; 81025; 85025; 87077; 87086; 87088; 87186; 96365; 99284; A9270; J0696; J7030